=== PATIENT | male | born 2000 | race Caucasian/White ===

== ENCOUNTER 2023-05-28 10:14 | Emergency (ER) | payer SELFPAY ==
[2023-05-28] MEDS ORDERED: Sodium Chloride 0.9% 1,000 ML IV ONE (11:25)
[2023-05-28 12:29] LABS: BASOPHILS ABSOLUTE AUTO 0.03 K/mm3 (0.01-0.08); BASOPHILS PERCENT AUTO 0.3 % (0.1-1.2); EOSINOPHILS ABSOLUTE AUTO 0.04 K/mm3 (0.04-0.54); EOSINOPHILS PERCENT AUTO 0.4 (0.8-7.0); HEMATOCRIT 44.5 % (40.1-51.0); HEMOGLOBIN 15.1 gm/dl (13.7-17.5); IMMATURE GRAN ABSOLUTE AUTO 0.05 K/mm3 (0.00-0.10); IMMATURE GRAN PERCENT AUTO 0.5 % (<=1.0); LYMPHOCYTES ABSOLUTE AUTO 2.13 K/mm3 (1.32-3.57); LYMPHOCYTES PERCENT AUTO 21.1 % (21.8-53.1); MEAN CORPUSCULAR HEMOGLOBIN 29.7 pg (25.7-32.2); MEAN CORPUSCULAR HGB CONC 33.9 g/dl (32.2-35.5); MEAN CORPUSCULAR VOLUME 87.4 fl (79.0-92.2); MONOCYTES ABSOLUTE AUTO 1.15 K/mm3 (0.30-0.82); MONOCYTES PERCENT AUTO 11.4 % (5.3-12.2); NEUTROPHILS ABSOLUTE AUTO 6.71 K/mm3 (1.78-5.38); NEUTROPHILS PERCENT AUTO 66.3 % (34.0-67.9); PLATELET COUNT,PLT 245 K/mm3 (163-337); RED BLOOD CELL COUNT 5.09 M/mm3 (4.63-6.08); WHITE BLOOD CELL COUNT,WBC 10.11 K/mm3 (4.23-9.07)
[2023-05-28 12:44] LABS: A/G RATIO 1.3 (1-2); ALBUMIN 4.1 g/dl (3.4-5.0); ANION GAP 9.7 (5-15); BILIRUBIN TOTAL 0.4 mg/dL (0.2-1.0); CALCIUM 8.6 mg/dL (8.5-10.1); EST CRCL DRUG DOSING (CG) 110.2 mL/min; MAGNESIUM 2.3 mg/dL (1.8-2.4); PHOSPHORUS 2.5 mg/dL (2.6-4.7); POTASSIUM,K 3.7 mEq/L (3.5-5.1); PROTEIN TOTAL,TP 7.2 g/dl (6.4-8.2)
[2023-05-28 13:15] LABS: APPEARANCE,URINE CLEAR (Clear); BILIRUBIN,URINE NEGATIVE (Negative); COLOR,URINE YELLOW (Yellow); GLUCOSE,URINE NEGATIVE (Negative); KETONES,URINE NEGATIVE (Negative); LEUKOCYTE ESTERASE,URINE NEGATIVE (Negative); NITRITE,URINE NEGATIVE (Negative); OCCULT BLOOD,URINE NEGATIVE (Negative); PROTEIN,URINE NEGATIVE (Negative); UROBILINOGEN,URINE 0.2 (0.2-1.0)
[2023-05-28 13:18] LABS: BARBITURATE SCREEN,URINE NEGATIVE (CUTOFF=200); BENZODIAZEPINES SCREEN,URINE NEGATIVE (CUTOFF=150); BUPRENORPHINE SCREEN,URINE NEGATIVE (CUTOFF=10); METHADONE SCREEN, URINE NEGATIVE (CUT0FF=200); METHAMPHETAMINES SCREEN, URINE NEGATIVE (CUTOFF=500); OXYCODONE SCREEN,URINE NEGATIVE (CUT0FF=100); PROPOXYPHENE SCREEN,URINE NEGATIVE (CUTOFF=300); THC SCREEN,URINE 20 NG/ML NEGATIVE (CUTOFF=50)
[2023-05-28 13:19] LABS: AMPHETAMINES SCREEN, URINE PRESUMPTIVE POSITIVE (CUTOFF=500)
[2023-05-28 13:23] LABS: BACTERIA,URINE FEW /hpf (FEW); HYALINE CASTS,URINE 0-5 /lpf (0-5); MUCUS,URINE RARE /hpf (FEW); RBC,URINE 0-5 /hpf (0-5); SQUAMOUS EPITHELIAL CELLS,UR NOT SEEN /hpf (0-5); WBC,URINE 0-5 /hpf (0-5)
== END 2023-05-28 13:55 | disposition home or self-care (01) ==
LOC: EDBD 10:14 → JD.ED 10:14
DX: R55 Syncope and collapse (principal)
CPT/HCPCS: 36415; 70450; 70450-26; 72125; 72125-26; 73030-26-LT; 73030-LT; 80053; 80306; 80307; 81001; 83735; 84100; 85025; 93005; 93010; 96360; 99283; 99285-25; J7030